=== PATIENT | female | born 1990 | race Caucasian/White ===

== ENCOUNTER → 2018-03-29 | Outpatient (CLI) | payer BC ==
--- NOTE | 2018-03-29 13:28 | XR ---
EXAMINATION TYPE: XR lumbar spine 2 or 3V DATE OF EXAM: 03/29/2018 CLINICAL HISTORY: Low back pain after trauma TECHNIQUE: Frontal and lateral images of the lumbar spine are obtained. COMPARISON: None FINDINGS: There are 5 lumbar type vertebral bodies identified. There is a very slight dextroscolioti c curvature of the lower lumbar spine that may be positional in nature. Schmorl's node is seen at the superior endplate of L3 as well as of L4. The lumbar spine shows satisfactory alignment without evid ence of acute fracture or dislocation. Vertebral body heights and disk space heights are within yandel l limits. The oblique images appear within normal limits. The overlying soft tissue appears unrema rkable. IMPRESSION: No acute fracture or malalignment is seen in the lumbar spine.
== END | disposition home or self-care (01) ==
LOC: RADXRYALE 12:44
PROVIDERS: ATTEND Internal Medicine
DX: M54.5 Low back pain (principal)
CPT/HCPCS: 72100